=== PATIENT | female | born 1995 | race Caucasian/White ===

== ENCOUNTER 2023-08-03 12:02 | Outpatient (NON) | payer OTHER, SELFPAY ==
[2023-08-03 12:20] LABS: Appearance Urine Clear (Clear); Bilirubin Urine Negative (Negative); Blood Urine Negative (Negative); Glucose Urine UA Negative (Negative); Ketones Urine Negative (Negative); Leukocyte Esterase Ur 3+ LEU/UL (Negative); Nitrate Urine Negative (Negative); Protein Urine Negative (Negative); Urobilinogen Urine 0.2 mg/dL (0.2-1.0)
[2023-08-03 12:26] LABS: Add Urine Microscopic? YES; Bacteria Urine Trace /hpf; Color Urine Light Yellow (Yellow); RBC Urine 0-2 /hpf (0-2); Squamous Epithelial Cell Urine Rare /hpf (Few)
== END 2023-08-03 12:03 | disposition home or self-care (01) ==
LOC: CHSLAB 12:04
PROVIDERS: Visit Provider Nurse Practitioner Family
DX: Z87.898 Personal history of other specified conditions (principal)
CPT/HCPCS: 81001; 87086; 87088

== ENCOUNTER 2023-09-02 14:22 | Outpatient (CLI) | payer OTHER, SELFPAY ==
[2023-09-02 15:51] LABS: Alanine Aminotransferase 26 U/L (14-59); Albumin Level 4.5 g/dL (3.4-5.0); Alkaline Phosphatase 48 U/L (46-116); Anion Gap 10 mmol/L (8-16); Aspartate Amino Transferase 17 U/L (15-37); Bilirubin,Total 0.9 mg/dL (0.00-1.00); Blood Urea Nitrogen 9 mg/dL (7-18); Calcium 9.6 mg/dL (8.5-10.1); Carbon Dioxide 29 mmol/L (21-32); Chloride 101 mmol/L (98-108); Estimated Glomerular Filt Rate 57; Free T4 Free Thyroxine 0.88 ng/dL (0.76-1.46); Glucose 77 mg/dL (70-99); Osmolality Calculated 287 mOsm/kg (285-295); Potassium 4.7 mmol/L (3.5-5.1); Sodium 140 mmol/L (136-145); Thyroid Stimulating Hormone 1.16 uIU/mL (0.36-3.74); Total Protein 7.5 g/dL (6.4-8.2); Vitamin B12 552 pg/mL (193-986)
[2023-09-07 17:57] LABS: Estrogen 204 pg/mL; Vitamin D 25 Hydroxy 34 ng/mL (30-100)
[2023-09-12 16:34] LABS: Testosterone Free 231.6 pg/mL (0.1-6.4); Testosterone Total 757 ng/dL (2-45)
== END 2023-09-02 14:23 | disposition home or self-care (01) ==
LOC: CHSLAB 14:24
PROVIDERS: PCP Nurse Practitioner Family; Visit Provider Nurse Practitioner Family
DX: F39 Unspecified mood [affective] disorder (principal); F64.0 Transsexualism; Z79.899 Other long term (current) drug therapy
CPT/HCPCS: 36415; 80053; 82306; 82607; 82672; 83735; 84402; 84403; 84439; 84443

== ENCOUNTER 2023-09-22 15:47 | Outpatient (CLI) | payer OTHER, SELFPAY ==
[2023-09-22 16:19] LABS: Appearance Urine Clear (Clear); Bilirubin Urine Negative (Negative); Blood Urine Negative (Negative); Color Urine Light Yellow (Yellow); Glucose Urine UA Negative (Negative); Ketones Urine Negative (Negative); Leukocyte Esterase Ur 1+ LEU/UL (Negative); Nitrate Urine Negative (Negative); Protein Urine Negative (Negative); Specific Grav Ur <= 1.005 (1.010-1.020); Urobilinogen Urine 0.2 mg/dL (0.2-1.0)
[2023-09-22 16:46] LABS: Add Urine Microscopic? YES; Bacteria Urine Rare /hpf; RBC Urine 0-2 /hpf (0-2); Squamous Epithelial Cell Urine None seen /hpf (Few); WBC Urine 0-3 /hpf (0-3)
[2023-09-22 17:31] LABS: HIV 1 P24 AG Negative (Negative); HIV 1/2 AB Negative (Negative)
[2023-09-22 17:37] LABS: Alanine Aminotransferase 28 U/L (14-59); Albumin Level 4.9 g/dL (3.4-5.0); Alkaline Phosphatase 47 U/L (46-116); Anion Gap 13 mmol/L (8-16); Aspartate Amino Transferase 21 U/L (15-37); Bilirubin,Total 0.9 mg/dL (0.00-1.00); Blood Urea Nitrogen 15 mg/dL (7-18); Calcium 9.8 mg/dL (8.5-10.1); Carbon Dioxide 27 mmol/L (21-32); Chloride 100 mmol/L (98-108); Estimated Glomerular Filt Rate > 60; Glucose 81 mg/dL (70-99); Osmolality Calculated 289 mOsm/kg (285-295); Potassium 4.2 mmol/L (3.5-5.1); Sodium 140 mmol/L (136-145); Total Protein 7.9 g/dL (6.4-8.2)
[2023-09-23 19:34] LABS: Trichomonas Vag PCR NOT DETECTED (NOT DETECTE)
[2023-09-23 19:59] LABS: Chlamydia trachomatis NOT DETECTED (NOT DETECTE); Neisseria gonorrhoeae PCR NOT DETECTED (NOT DETECTE)
[2023-09-25 13:33] LABS: RPR Screen Non-Reactive (Non-Reactive)
[2023-09-25 19:57] LABS: Hepatitis A Antibody IgM Nonreactive; Hepatitis B Core Antibody Nonreactive (Nonreactive); Hepatitis B Surface Antigen Nonreactive (Nonreactive); Hepatitis C Virus Antibody Nonreactive
[2023-09-27 13:12] LABS: Testosterone Free 155.2 pg/mL (0.1-6.4); Testosterone Total 655 ng/dL (2-45)
[2023-09-29 17:12] LABS: Estrogen 223 pg/mL
== END 2023-09-22 15:48 | disposition home or self-care (01) ==
LOC: CHSLAB 15:48
PROVIDERS: PCP Nurse Practitioner Family; Visit Provider Nurse Practitioner Family
DX: Z11.3 Encounter for screening for infections with a predominantly sexual mode of transmission (principal); Z20.2 Contact with and (suspected) exposure to infections with a predominantly sexual mode of transmission; Z87.898 Personal history of other specified conditions; F64.0 Transsexualism; N28.9 Disorder of kidney and ureter, unspecified
CPT/HCPCS: 36415; 80053; 80074; 81001; 82672; 84402; 84403; 86592; 86695; 86696; 87070; 87086; 87491; 87591; 87661; 87806

== ENCOUNTER 2023-11-09 15:01 | Outpatient (CLI) | payer OTHER, SELFPAY ==
[2023-11-09 15:19] LABS: Basophils Absolute Auto 0.06 K/mm3 (0.00-0.10); Basophils Percent Auto 0.8 % (0.0-1.0); Eosinophils Absolute Auto 0.12 K/mm3 (0.02-0.50); Eosinophils Percent Auto 1.6 % (1.0-6.0); Hematocrit 49.9 % (35.0-49.0); Hemoglobin 16.6 g/dL (12.0-15.0); Immature Granulocyte Absolute 0.03 K/mm3 (0.00-0.00); Immature Granulocyte Percent A 0.4 % (0.0-0.0); Lymphocytes Absolute Auto 1.99 K/mm3 (1.10-4.50); Lymphocytes Percent Auto 26.4 % (18.0-42.0); Mean Corpuscular HGB Conc 33.3 g/dL (32-36); Mean Corpuscular Volume 90.1 fL (78.0-102.0); Mean Platelet Volume 9.5 fl (9.2-11.8); Monocytes Absolute Auto 0.59 K/mm3 (0.10-0.90); Monocytes Percent Auto 7.8 % (2.0-11.0); Neutrophils Absolute Auto 4.75 K/mm3 (1.70-7.20); Platelet Count Result 338 K/mm3 (150-420); Red Blood Count 5.54 M/mm3 (4.20-5.40); White Blood Count 7.5 K/mm3 (4.8-10.8)
[2023-11-09 15:56] LABS: Alanine Aminotransferase 25 U/L (14-59); Albumin Level 4.7 g/dL (3.4-5.0); Alkaline Phosphatase 46 U/L (46-116); Anion Gap 10 mmol/L (4-12); Aspartate Amino Transferase 17 U/L (15-37); Bilirubin,Total 0.5 mg/dL (0.00-1.00); Blood Urea Nitrogen 10 mg/dL (7-18); Calcium 9.2 mg/dL (8.5-10.1); Carbon Dioxide 29 mmol/L (21-32); Chloride 103 mmol/L (98-108); Estimated Glomerular Filt Rate 59; Glucose 80 mg/dL (70-99); Osmolality Calculated 292 mOsm/kg (285-295); Potassium 4.6 mmol/L (3.5-5.1); Sodium 142 mmol/L (136-145); Total Protein 7.5 g/dL (6.4-8.2)
[2023-11-10 13:59] LABS: Lyme Disease Ab (IgM), Blot NEGATIVE (NEGATIVE); Lyme Disease Ab(IgG), Blot NEGATIVE (NEGATIVE)
[2023-11-11 12:36] LABS: Cholesterol 137 mg/dL (0-200); HDL Direct 44 mg/dL (40-60); LDL Cholesterol Calculated 77 mg/dL (<130); Triglycerides 78 mg/dL (0-150)
[2023-11-12 12:23] LABS: Testosterone Free 75.4 pg/mL (0.1-6.4); Testosterone Total 363 ng/dL (2-45)
[2023-11-17 20:14] LABS: Estrogen 169 pg/mL
[2023-11-18 19:09] LABS: Estradiol, Ultrasensitive 37 pg/mL
== END 2023-11-09 15:02 | disposition home or self-care (01) ==
LOC: CHSLAB 15:03
PROVIDERS: PCP Nurse Practitioner Family; Visit Provider Nurse Practitioner Family
DX: F64.0 Transsexualism (principal)
CPT/HCPCS: 36415; 80053; 80061; 82670; 82672; 84402; 84403; 85025; 86617; 86638; 86666; 86757

== ENCOUNTER 2024-10-08 08:17 | Outpatient (CLI) | payer OTHER, SELFPAY ==
--- NOTE | ~2024-10-08 | MR_ITS ---
EXAMINATION: MR hand LT wo con DATE: 10/08/2024 08:54 INDICATION: Left hand pain. TECHNIQUE: Magnetic resonance imaging (MRI) of the left hand was performed without intravenous contra st. COMPARISON: None. FINDINGS: Alignment is normal. No fracture. There is mild osteoarthritis of first carpometacarpal leticia nt. There is an effusion of pisotriquetral joint. There is an 8 x 5 x 6 mm ganglion cyst distal to pi sotriquetral joint. There is a small effusion of radiocarpal compartment. The flexor and extensor ten dons are normal. IMPRESSION: 1. Effusion of pisotriquetral joint with 8 mm ganglion cyst distal to pisotriquetral joint. Reviewed, dictated and finalized at location A. IMPRESSION: 1. Effusion of pisotriquetral joint with 8 mm ganglion cyst distal to pisotriqu etral joint.
--- NOTE | ~2024-10-08 | MR_ITS ---
EXAMINATION: MR wrist LT wo con DATE: 10/08/2024 09:10 INDICATION: Left wrist pain. TECHNIQUE: Magnetic resonance imaging (MRI) of the wrist was performed without intravenous contrast. Sequences performed include coronal T1-weighted FSE, coronal PD-weighted FS FSE, axial PD-weighted FS FSE, axial PD-weighted FSE, sagittal PD-weighted FSE, and sagittal PD-weighted FS FSE. COMPARISON: None FINDINGS: Intrinsic ligaments: The scapholunate joint and lunotriquetral joint are normal. Triangular fibrocartilage complex (TFCC): The triangular fibrocartilage is intact. Extensor wrist: The extensor tendons are normal. Flexor wrist: The flexor tendons are normal. Median nerve is normal. Guyon's canal: Ulnar nerve is normal. Bones/other: Alignment is normal. No fracture. There is mild osteoarthritis of first carpometacarpal joint. There is a small effusion of radiocarpal compartment. There is an effusion of pisotriquetral joint. There i s an 8 x 5 x 6 mm ganglion cyst distal to pisotriquetral joint. IMPRESSION: 1. Effusion of pisotriquetral joint with 8 mm ganglion cyst distal to pisotriquetral joint. 2. Mild osteoarthritis of first carpometacarpal joint. Reviewed, dictated and finalized at location A. IMPRESSION: 1. Effusion of pisotriquetral joint with 8 mm ganglion cyst distal to pisotriqu etral joint. 2. Mild osteoarthritis of first carpometacarpal joint.
== END 2024-10-08 08:18 | disposition home or self-care (01) ==
LOC: MICIMG 08:19
PROVIDERS: PCP Registered Nurse; Visit Provider Registered Nurse
DX: M19.032 Primary osteoarthritis, left wrist (principal); M25.432 Effusion, left wrist; M25.442 Effusion, left hand
CPT/HCPCS: 73218; 73221

== ENCOUNTER 2025-04-25 06:05 | Emergency (ER) | payer OTHER, SELFPAY ==
--- NOTE | ~2025-04-25 | XR_ITS ---
EXAMINATION: XR hand RT min 3V DATE: 04/25/2025 09:25 INDICATION: Right thumb bite. TECHNIQUE: 3 images of the right hand were obtained. COMPARISON: None. FINDINGS: [ No significant degenerative change.] [ No radiographic evidence for an acute fracture or dislocation.] [ No radiopaque foreign body.] [ No sclerotic or destructive bone lesions.] IMPRESSION: 1. [ No acute bony abnormality identified.] If symptoms persist or worsen consider a short-term follow-up study or additional imaging for further assessment. Reviewed, dictated and finalized at location Q. IMPRESSION: 1. [ No acute bony abnormality identified.] If symptoms persist or worsen consider a short-term follow-up study or addition al imaging for further assessment.
[2025-04-25 06:20] VITALS: BP 145/109; PULSE 88; RESP 14; TEMP 36.4; O2SAT 100
[2025-04-25 08:19] VITALS: BP 130/98; PULSE 74; RESP 16; O2SAT 100
--- NOTE | 2025-04-25 09:18 | ED.GENADULT ---
HPI - General Adult General Chief complaint: Skin/Abscess/Foreign Body Stated complaint: R thumb cat bite with painful joint Time Seen by Provider: 04/25/25 08:53 History of Present Illness HPI narrative: Kim Lewis is a 29 year old female who presents today with reports of being bit by a cat 4 days ago to her right thumb. She states that she is having increased swelling and redness and pain and want to get it checked out. She states that the cat did not seem ill but she says it was a stray cat. Related Data Home Medications ?Medication ?Instructions ?Recorded ?Confirmed ?Last Taken ?Type clonazepam 0.5 mg tablet 0.5 mg PO DAILY PRN 07/14/23 02/23/24 Unknown History Allergies Allergy/AdvReac Type Severity Reaction Status Date / Time No Known Allergies Allergy Verified 04/25/25 09:44 Review of Systems Review of Systems: All systems reviewed & are unremarkable except as noted in HPI and below PMFSH Past Medical History Medical History PTSD (post-traumatic stress disorder) Mood disorder Pre-diabetes Transsexualism PCOS (polycystic ovarian syndrome) Social History Social History Smoking status: Current every day smoker Tobacco type: e-cigarettes/vaping Exam Narrative: GENERAL: Well-appearing, well-nourished, and in no acute distress. HEAD: Normocephalic, atraumatic. EYES: PERRLA and EOMI. ENT: Nares clear, no rhinorrhea or epistaxis. Mucous membranes moist. Oropharynx without tonsillar hypertrophy exudate or other lesions. NECK: Supple. No adenopathy or masses. CHEST: Clear to auscultation. No respiratory distress. No wheezes rales or rhonchi HEART: Regular rate and rhythm. No murmur heard. Normal peripheral pulses. ABDOMEN: Soft, nontender, nondistended, normal active bowel sounds. EXTREMITIES: Normal range of motion. Right thumb with some erythema and swelling no open wound draining ecchymosis to the corner of the nail bed. Range of motion intact SKIN: Warm, dry, no rash. NEURO: No focal deficits. Alert and oriented x3. PSYCH: Normal mood and affect. Course Vital Signs Vital signs: Vital Signs Temperature 36.4 C L 04/25/25 06:20 Pulse Rate 88 04/25/25 06:20 Respiratory Rate 14 04/25/25 06:20 Blood Pressure 145/109 H 04/25/25 06:20 Pulse Oximetry 100 04/25/25 06:20 Oxygen Delivery Room Air 04/25/25 06:20 Temperature 36.4 C L 04/25/25 06:20 Pulse Rate 83 04/25/25 09:45 Respiratory Rate 16 04/25/25 09:45 Blood Pressure 135/87 04/25/25 09:45 Pulse Oximetry 100 04/25/25 09:45 Oxygen Delivery Room Air 04/25/25 08:19 Medical Decision Making MDM Narrative Medical decision making narrative: [age] year female presents after being bit by a cat to her right thumb about 4 days ago. She does not know when her last tetanus shot was. She states that she is having some increased pain redness and swelling to that thumb she says it did puncture through this skin the pad of the thumb but that has since closed. We discussed whether not to do rabies vaccine, she states that the CT did not seem to be ill she thinks this is probably low risk for rabies and based on up-to-date there not been recorded rabies as stated below a except for around 50 last ago it was from a bat. At this time do not feel that it is needed to treat her diabetes. Concern for infection or fracture Will check an x-ray and update her Tdap care pain medication and start antibiotics Augmentin here and send her home with a prescription for Augmentin b.i.d. for 10 days X-rays negative for any acute finding Plan to patient discharge patient with continuing of Augmentin, with plastics follow-up is needed follow-up with primary care doctor with her strict return precautions Patient is agreeable to this plan denies anything further at this time. Medical Records Medical records reviewed: Yes I reviewed the external patient's medical records. Vital Signs Vital Signs: Vital Signs Temperature 36.4 C L 04/25/25 06:20 Pulse Rate 88 04/25/25 06:20 Respiratory Rate 14 04/25/25 06:20 Blood Pressure 145/109 H 04/25/25 06:20 Pulse Oximetry 100 04/25/25 06:20 Oxygen Delivery Room Air 04/25/25 06:20 Temperature 36.4 C L 04/25/25 06:20 Pulse Rate 83 04/25/25 09:45 Respiratory Rate 16 04/25/25 09:45 Blood Pressure 135/87 04/25/25 09:45 Pulse Oximetry 100 04/25/25 09:45 Oxygen Delivery Room Air 04/25/25 08:19 Vitals reviewed Imaging Data Radiologist's impression: Impressions Hand X-Ray 04/25/25 09:29 IMPRESSION: 1. [ No acute bony abnormality identified.] If symptoms persist or worsen consider a short-term follow-up study or additional imaging for further assessment. Discharge Plan Discharge Clinical Impression: Cat bite Qualifiers: Encounter type: initial encounter Qualified Code(s): W55.01XA - Bitten by cat, initial encounter Injury of right thumb Qualifiers: Encounter type: initial encounter Qualified Code(s): S69.91XA - Unspecified injury of right wrist, hand and finger(s), initial encounter Patient Disposition: Home Condition: Stable Instructions: Antibiotic Form, Animal Bite (ED) Additional Instructions: Continue to take the Augmentin twice a day for 10 days, continue to do warm compresses to your some to help draining anything if he needs to. This should only get better if he develops any new worsening symptoms return to the emergency department he may also follow-up with plastics as discussed for follow-up. Continue to take Tylenol Motrin for the pain. Patient Language: Arabic Prescriptions: New amoxicillin-pot clavulanate 875-125 mg tablet 1 tablet PO Q12H Qty: 20 0RF No Action clonazepam 0.5 mg tablet 0.5 mg PO DAILY PRN norethindrone (contraceptive) 0.35 mg tablet 0.35 mg PO DAILY Qty: 84 3RF clonidine HCl 0.2 mg tablet 0.2 mg PO DAILY PRN (Reason: disturbed sleep pattern) Qty: 20 0RF metformin 500 mg tablet extended release 24 hr 500 mg PO .DAILYWMEAL Qty: 30 2RF Follow-up/Referrals: Alysia Jacobo MD [Physician, Plastic Surgery] - 1 Week PHYSICIAN NOT ON STAFF,NONSTAFF [Primary Care Provider] Stand Alone Forms: Work/School Release IP Time of Disposition: 09:41
[2025-04-25 09:45] VITALS: BP 135/87; PULSE 83; RESP 16; O2SAT 100
[2025-04-25] MEDS: TETANUS,DIPHTHERIA,AC PERTUSSIS ADULT (0.5 ML) BOOSTRIX IM (09:45)
[2025-04-25] MEDS: HYDROcodone/acetaminophen (*CRX) 5-325 MG TABLET 1 TAB PO (09:46)
== END 2025-04-25 09:56 | disposition home or self-care (01) ==
PROVIDERS: Emergency Provider Nurse Practitioner Family
DX: S61.051A Open bite of right thumb without damage to nail, initial encounter (principal); Z23 Encounter for immunization; R73.03 Prediabetes; E28.2 Polycystic ovarian syndrome; F39 Unspecified mood [affective] disorder; F43.10 Post-traumatic stress disorder, unspecified; F64.0 Transsexualism; F17.290 Nicotine dependence, other tobacco product, uncomplicated; Z79.3 Long term (current) use of hormonal contraceptives; Z79.84 Long term (current) use of oral hypoglycemic drugs; W55.01XA Bitten by cat, initial encounter
CPT/HCPCS: 73130; 90471; 90715; 99283; A9270